=== PATIENT | female | born 1985 | race Caucasian/White ===

== ENCOUNTER 2021-11-26 13:11 | Emergency (ER) | payer MEDICAID ==
[~2021-11-26] VITALS: Ht 167.6 cm; Wt 90.7 kg
[2021-11-26 15:35] VITALS: BP_SYST 132
--- NOTE | 2021-11-26 15:35 | NUR ---
Patient to ER bed 05 to gown for evaluation.
--- NOTE | 2021-11-26 15:35 | NUR ---
patient from home, ambulatory, aox 4 complaining of lower back pain x 2 days. Denies any nausea, vomiting, diarrhea, constipation, abdominal pain, or dysuria. No acute distress noted at this time.
--- NOTE | 2021-11-26 15:36 | NUR ---
ER Dr. Perales at bedside examining patient.
[2021-11-26 15:45] LABS: BILIRUBIN,URINE NEGATIVE (NEGATIVE); BLOOD, URINE NEGATIVE (NEGATIVE); CLARITY/URINE SL CLOUDY (CLEAR); COLOR,URINE YELLOW (YELLOW); GLUCOSE,URINE NEGATIVE (NEGATIVE); KETONES,URINE NEGATIVE (NEGATIVE); LEUKOCYTE ESTERASE ,URINE TRACE (NEGATIVE); NITRITE, URINE NEGATIVE (NEGATIVE); PROTEIN URINE NEGATIVE (NEGATIVE); UROBILINOGEN,URINE 0.2 (0.2-1.0)
[2021-11-26] MEDS ORDERED: CYCLOBENZAPRINE HCL 10 MG TABLET (FLEXERIL) PO ONE (15:45)
[2021-11-26] MEDS ORDERED: KETOROLAC TROMETHAMINE 30 MG VIAL IM ONE (15:45)
[2021-11-26 15:51] LABS: BACTERIA,URINE FEW /HPF (None Seen); RBC,URINE 0-3 /HPF (0-3)
--- NOTE | 2021-11-26 16:07 | NUR ---
MEDICATED PER MD ORDER. PATIENT TOLERATED WELL.
[2021-11-26] MEDS ORDERED: METH-634 PO (16:28)
[2021-11-26] MEDS ORDERED: IBUP-1969 PO (16:28)
[2021-11-26] MEDS ORDERED: NITR-85 PO (16:29)
--- NOTE | 2021-11-26 16:36 | NUR ---
md at bedside for re assessment. patient reports relief or pain.
[2021-11-26 16:41] VITALS: BP_SYST 121
--- NOTE | 2021-11-26 16:41 | NUR ---
Patient given written and verbal discharge instructions and verbalizes understanding. ER MD discussed with patient the results and treatment provided. Patient in stable condition. ID arm band removed. Rx of ibuprofen, robaxin and macrobid given. Patient educated on pain management and to follow up with PMD. Pain Scale 0/10 Opportunity for questions provided and answered. Medication side effect fact sheet provided.
== END 2021-11-26 16:41 | disposition home or self-care (01) ==
LOC: SED 13:11
DX: S39.012A Strain of muscle, fascia and tendon of lower back, initial encounter (principal); N39.0 Urinary tract infection, site not specified; X58.XXXA Exposure to other specified factors, initial encounter; Y93.89 Activity, other specified; Y92.89 Other specified places as the place of occurrence of the external cause; Y99.8 Other external cause status
CPT/HCPCS: 81000; 81025; 87086; 96372; 99283; J1885

== ENCOUNTER 2022-02-23 14:02 | Emergency (ER) | payer MEDICAID ==
[~2022-02-23] VITALS: Ht 162.6 cm; Wt 81.6 kg
[~2022-02-23 14:02] MED LIST: IBUP-1969 PO; METH-634 PO; NITR-85 PO
[2022-02-23 14:28] VITALS: BP_SYST 125
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
== END 2022-02-23 19:00 | disposition left against medical advice (07) ==
LOC: SED 14:02
DX: M25.562 Pain in left knee (principal); Z53.21 Procedure and treatment not carried out due to patient leaving prior to being seen by health care provider